=== PATIENT | male | born 1965 | race Two or more races ===

== ENCOUNTER 2024-09-27 21:35 | Emergency (ER) | payer SELFPAY ==
[~2024-09-27] VITALS: Ht 160 cm; Wt 95.2 kg
[2024-09-27 22:15] LABS: Urine Bacteria None Seen /hpf (None Seen)
[2024-09-27 22:28] LABS: Urine Blood Negative /uL (Negative); Urine Clarity Clear (Clear); Urine Color Yellow (Yellow); Urine Mucus FEW (None Seen); Urine Protein, UAD TRACE (Negative); Urine Specific Gravity 1.031 (1.001-1.035); Urine Squamous Epithelial Cell FEW /hpf (<5); Urine Urobilinogen Normal (Negative); Urine WBC < 1 /HPF (0-3); Urine pH 5.5 (5.0-9.0)
[2024-09-28] MEDS ORDERED: CIPR-173 PO (02:53)
--- NOTE | 2024-09-28 02:54 | ED.PDOC ---
History of Present Illness HPI Comments 58-year-old male with a history of diabetes, hypertension, BPH and dyslipidemia brought in by self complaining of blood in his semen today. He also notes a long history of urinary frequency. He states he was seen in [place] in August of this year for the urinary frequency. He was prescribed some medications for prostate enlargement. He denies any fever, abdominal pain, genitourinary pain, nausea, vomiting or urethral discharge. He is not concerned for STDs. Chief Complaint: Urinary Time Seen by MD: 22:30 Primary Care Provider: none Allergies: Coded Allergies: NO KNOWN ALLERGIES (Unverified , 09/27/24) Mode of Arrival: Ambulatory Past Medical History PAST MEDICAL HISTORY: DM, High Lipids, HTN Past Medical History (Other): BPH Surgical History (Other): Anal fistula, appendectomy Family History Family History: Reviewed,noncontributory to illness Social History Smoker: Non-Smoker Alcohol: Denies ETOH Use Drugs: Denies Drug Use Lives In: Home All Other Systems: Reviewed and Negative (Comprehensive systems review obtained and negative except for what is stated in the HPI.) Physical Exam General Appearance: No Apparent Distress HEENT: Other (Pupils and face symmetric. Moist mucous membranes.) Neck: Full Range of Motion, Normal Inspection Respiratory: No Accessory Muscle Use, No Respiratory Distress, Normal Breath Sounds Cardiovascular: No Edema, No JVD, Regular Rate/Rhythm Breast Exam: Deferred Gastrointestinal: Non Tender, Soft Genitalia: Deferred Pelvic: Deferred Rectal: Deferred Extremities: Normal inspection, Normal range of motion, No pedal edema Neurologic: Alert (Oriented x4), Normal Affect, Normal Mood, Other (Ambulatory without difficulty. No gross focal deficit.) Cerebellar Function: NOT DONE Reflexes: NOT DONE Skin: Dry, Normal Color, Warm Lymphatic: NOT DONE Was a procedure done? Was a procedure done?: No Differential Dx Considerations may include: Prostatitis, UTI,, coagulopathy, STD, among others X-Ray, Labs, Meds, VS Vital Signs Date Time Temp Pulse Resp B/P (MAP) Pulse Ox O2 Delivery O2 Flow Rate FiO2 09/27/24 22:05 97.7 78 20 141/91 (108) 94 Lab Test 09/27/24 21:57 Range/Units Urine Color Yellow Yellow Urine Clarity Clear Clear Urine pH 5.5 5.0-9.0 Urine Specific [place] 1.031 1.001-1.035 Urine Protein Trace H Negative Urine Ketones Negative Negative Urine Blood Negative Negative /uL Urine Nitrite Negative Negative Urine Bilirubin Negative Negative Urine Urobilinogen Normal Negative mg/dL Urine Leukocyte Esterase Negative Negative /uL Urine RBC 2 0 - 3 /hpf Urine Microscopic WBC < 1 0-3 /HPF Urine Squamous Epithelial Cells Few <5 /hpf Urine Bacteria None seen None Seen /hpf Urine Mucus Few None Seen Urine Glucose Normal Normal mg/dL X-Ray, Labs, Meds, VS Comment 58-year-old male with a history of hypertension, diabetes, dyslipidemia, BPH complaining of blood in his semen. Vitals remarkable for BP 141/91, oxygen saturation 94% on room air Exam unremarkable UA unremarkable Patient is well-appearing and is currently hemodynamically stable. His symptoms are likely due to prostatitis. He appears stable for outpatient treatment with close follow-up with an urologist. He will be referred to Dr. Gallo. Rx Cipro Time of 1ST Reevaluation: 22:50 Reevaluation 1ST: Unchanged Patient Education/Counseling: Diagnosis, Treatment, Need For Follow Up Family Education/Counseling: No Family Present Departure 1 Departure Time of Disposition: 22:50 Impression: Primary Impression: Prostatitis Qualified Codes: N41.9 - Inflammatory disease of prostate, unspecified Disposition: 01 HOME / SELF CARE / HOMELESS Condition: Stable Referrals: GUILLERMO GALLO MD Additional Instructions: Your urine test was unremarkable. I have prescribed antibiotics for treatment of possible prostatitis (inflammation/infection the prostate). Follow-up with an urologist in 1-2 days. You have been referred to Dr. Gallo. e-Prescriptions Ciprofloxacin Hcl (Cipro) 500 Mg Tab 1 TAB PO BID for 14 Days, #28 TAB Prov: FARZANA LOMBARDO MD 09/28/24 Discharged With: Spouse Critical Care Note Critical Care Time?: No Stability Stability form required: No Heart Score Heart Score: Heart Score Response (Comments) Value History N/A 0 EKG N/A 0 Age N/A 0 Risk Factors N/A 0 Troponin N/A 0 Total 0 FARZANA LOMBARDO MD Sep 28, 2024 02:54
[2024-09-28 03:50] VITALS: BP 151/87; TEMP 98.9
[2024-09-28 03:58] VITALS: PULSE 99; RESP 17; O2SAT 100
== END 2024-09-28 03:59 | disposition home or self-care (01) ==
LOC: ER 21:35
DX: N41.9 Inflammatory disease of prostate, unspecified (principal); E11.9 Type 2 diabetes mellitus without complications; E78.5 Hyperlipidemia, unspecified; I10 Essential (primary) hypertension; Z98.890 Other specified postprocedural states
CPT/HCPCS: 81001